=== PATIENT | female | born 1965 | race Caucasian/White ===

== ENCOUNTER → 2016-05-15 | Outpatient (CLI) | payer OTHER | LOC: MERGE 08:15 → FIMAGING 08:15 | DX: Z12.31 Encounter for screening mammogram for malignant neoplasm of breast (principal) | CPT/HCPCS: G0202 ==

== ENCOUNTER → 2017-11-07 | Outpatient (CLI) | payer BC, OTHER | LOC: FIMAGING 08:52 | PROVIDERS: ATTEND Family Medicine | DX: Z12.31 Encounter for screening mammogram for malignant neoplasm of breast (principal); Z80.3 Family history of malignant neoplasm of breast ==

== ENCOUNTER → 2018-07-22 | Outpatient (CLI) | payer OTHER | LOC: BMCIMAGING 12:06 | PROVIDERS: ATTEND Family Medicine | DX: R07.81 Pleurodynia (principal) ==